=== PATIENT | female | born 1950 | race Asian ===

== ENCOUNTER 2018-11-24 14:17 | Outpatient (CLI) | payer MEDICARE ==
--- NOTE | 2018-11-24 14:59 | BD ---
DEXA BONE DENSITY STUDY: Date: 11/24/18 COMPARISON: 07/31/15. HISTORY: 68-year-old postmenopausal female for screening for osteoporosis. FINDINGS: Lumbar Spine: BMD (g/cm2) L1 0.614 T-Score: -3.4 L2 0.809 T-Score: -2.0 L3 0.795 T-Score: -2.6 L4 0.778 T-Score: -2.6 L1-L4 0.752 T-Score: -2.7 Left Femoral Neck: 0.559 T-Score: -2.6 Total Femur: 0.795 T-Score: -1.2 IMPRESSION: Osteoporosis. This patient has between a 6 and 7 times increased risk for fracture when compared with young patients with normal bone mineral density. POS: C
--- NOTE | 2018-11-24 15:22 | ULT ---
BILATERAL LOWER EXTREMITY VENOUS ULTRASOUND: COMPARISON: None. HISTORY: Bilateral lower extremity edema. TECHNIQUE: Multiplanar, bennett scale, and color Doppler images were obtained in a bilateral lower extremity venous ultrasound. Spectral analysis of the Doppler waveforms was performed. FINDINGS: The bilateral common femoral veins, profunda femoral veins, superficial femoral veins, and popliteal veins are normal in appearance without visible thrombus. These vessels demonstrate normal compressio n, flow, and augmentation. The posterior tibial veins and greater saphenous veins are also patent. IMPRESSION: No evidence of deep vein thrombosis. POS: C
== END 2018-11-24 14:18 | disposition home or self-care (01) ==
LOC: BICMAMMO 14:17
PROVIDERS: ATTEND Family Medicine
DX: Z13.820 Encounter for screening for osteoporosis (principal); I80.9 Phlebitis and thrombophlebitis of unspecified site; M81.0 Age-related osteoporosis without current pathological fracture
CPT/HCPCS: 77080; 93970